=== PATIENT | male | born 1960 | race Native Hawaiian/Other Pacific Islander ===

== ENCOUNTER 2022-06-09 09:00 | Outpatient (CLI) | payer BC | END 2022-06-09 18:55 | disposition home or self-care (01) | LOC: US 09:00 | PROVIDERS: ATTEND Nurse Practitioner Family | DX: I10 Essential (primary) hypertension (principal); N17.9 Acute kidney failure, unspecified ==

== ENCOUNTER 2023-02-16 19:43 | Outpatient (CLI) | payer BC | END 2023-02-16 20:48 | disposition home or self-care (01) | LOC: RAD 19:43 | PROVIDERS: ATTEND Physician Assistant | DX: M25.511 Pain in right shoulder (principal) ==